=== PATIENT | female | born 1950 ===

== ENCOUNTER → 2021-03-03 | Outpatient (CLI) | payer SELFPAY | END | disposition home or self-care (01) | LOC: LAB SHORT 08:10 | DX: D48.5 Neoplasm of uncertain behavior of skin (principal) | CPT/HCPCS: 88305 ==

== ENCOUNTER → 2021-09-02 | Outpatient (CLI) | payer MEDICARE, BC | LOC: LAB SHORT 10:42 → LAB 10:42 | DX: D48.5 Neoplasm of uncertain behavior of skin (principal) | CPT/HCPCS: 88305 ==